=== PATIENT | male | born 1965 | race Caucasian/White ===

== ENCOUNTER 2020-01-15 07:30 | Emergency (ER) | payer OTHER, SELFPAY ==
[2020-01-15] MEDS ORDERED: Ketorolac 60 MG/2 ML SDV IVPUSH ONE (07:51)
[2020-01-15] MEDS ORDERED: HYDROmorphone 2 MG/ML SDV IVPUSH ONE (08:12)
--- NOTE | 2020-01-15 08:14 | EDM.PDOC ---
ED HPI GENERAL MEDICAL PROBLEM - General Chief Complaint: Flank Pain Stated Complaint: left flank and back pain Time Seen by Provider: 01/15/20 07:50 Source of Information: Reports: Patient History Limitations: Reports: No Limitations - History of Present Illness INITIAL COMMENTS - FREE TEXT/NARRATIVE: patient had bilateral flank pain starting on Thursday, now has left flank pain. Denies any fever, cough, N/V/D, urinary symptoms, blood in urine, injury. Pain increased while lying and moving, pain is steady, achy, and sharp at times. He does not want a CT scan due to not having insurance, we discussed the risks amnd benefits, he has opted to start with a urine test. Location: Reports: Back Quality: Reports: Ache, Sharp Severity: Moderate Improves with: Reports: None Worsens with: Reports: Movement Associated Symptoms: Reports: No Other Symptoms Treatments [employer]: Reports: Acetaminophen - Related Data Allergies Allergy/AdvReac Type Severity Reaction Status Date / Time No Known Allergies Allergy Verified 06/06/16 18:07 Home Meds: Home Meds Acetaminophen/Caffeine [Excedrin Tension Headache] 1 tab PO Q6HR PRN 06/06/16 [History] Past Medical History - Past Health History Medical/Surgical History: Denies Medical/Surgical History Social & Family History - Tobacco Use Smoking Status *Q: Never Smoker Second Hand Smoke Exposure: No - Caffeine Use Caffeine Use: Reports: Soda - Recreational Drug Use Recreational Drug Use: No ED ROS GENERAL - Review of Systems Review Of Systems: See Below Constitutional: Reports: No Symptoms HEENT: Reports: No Symptoms Respiratory: Reports: No Symptoms Cardiovascular: Reports: No Symptoms Endocrine: Reports: No Symptoms GI/Abdominal: Reports: No Symptoms : Reports: No Symptoms Musculoskeletal: Reports: Back Pain Skin: Reports: No Symptoms Neurological: Reports: No Symptoms Psychiatric: Reports: No Symptoms Hematologic/Lymphatic: Reports: No Symptoms ED EXAM,LOWER BACK PAIN/INJURY - Physical Exam Exam: See Below Exam Limited By: No Limitations General Appearance: Alert, WD/WN Ears: Normal External Exam Head: Atraumatic Neck: Normal Inspection, Full Range of Motion Respiratory/Chest: No Respiratory Distress, Lungs Clear, Normal Breath Sounds Cardiovascular: Normal Peripheral Pulses, No Edema, No Murmur GI/Abdominal: Normal Bowel Sounds, Non-Tender Back Exam: Normal Inspection, CVA Tenderness (L). No: CVA Tenderness (R) Extremities: Normal Inspection, Non-Tender, Normal Capillary Refill Neurological: Alert, Normal Mood/Affect, Normal Gait, No Motor/Sensory Deficits, Oriented x 3 Psychiatric: Normal Affect, Normal Mood Skin Exam: Warm, Dry, Intact Course - Vital Signs Last Recorded V/S: Last Vital Signs Temp 98 F 01/15/20 07:40 Pulse 90 01/15/20 07:40 Resp 20 01/15/20 07:40 BP 176/108 H 01/15/20 07:40 Pulse Ox 98 01/15/20 07:40 - Orders/Labs/Meds Labs: Laboratory Tests 01/15/20 Range/Units 09:00 Urine Color Yellow Urine Appearance Clear (CLEAR) Urine pH 7.0 (5.0-8.0) Ur Specific [place] 1.015 (1.003-1.030) Urine Protein Negative (NEGATIVE) mg/dL Urine Glucose (UA) Negative (NEGATIVE) mg/dL Urine Ketones Negative (NEGATIVE) mg/dL Urine Occult Blood Negative (NEGATIVE) Urine Nitrite Negative (NEGATIVE) Urine Bilirubin Negative (NEGATIVE) Urine Urobilinogen 0.2 (0.2-1.0) E.U./dL Ur Leukocyte Esterase Negative (NEGATIVE) Meds: Medications Discontinued Medications Generic Name Dose Route Start Last Admin Trade Name Freq PRN Reason Stop Dose Admin Hydromorphone HCl 1 mg 01/15/20 08:12 01/15/20 08:19 Dilaudid IVPUSH 01/15/20 08:13 1 mg ONETIME ONE Administration Ketorolac Tromethamine 15 mg 01/15/20 07:51 01/15/20 07:53 Toradol IVPUSH 01/15/20 07:52 15 mg ONETIME ONE Administration Departure - Departure Time of Disposition: 09:45 Disposition: Home, Self-Care 01 Condition: Good Clinical Impression: Acute flank pain - Discharge Information *PRESCRIPTION DRUG MONITORING PROGRAM REVIEWED*: Not Applicable *COPY OF PRESCRIPTION DRUG MONITORING REPORT IN PATIENT MARIA ALEJANDRA: Not Applicable Instructions: Flank Pain, Adult Forms: ED Department Discharge Additional Instructions: PLEASE return to ED for any increased or new concerning symptoms. Increase fluids. Think about having a CT scan, as we still do not know what is causing your pain. You may take ibuprofen and/or tylenol for the pain. Sepsis Event Note (ED) - Evaluation Sepsis Screening Result: No Definite Risk - Focused Exam Vital Signs: Vital Signs Temp Pulse Resp BP Pulse Ox 01/15/20 07:40 98 F 90 20 176/108 H 98 - Assessment/Plan Assessment:: Pain decreased after IV dilaudid administered. He is refusing any further work up including. We discussed the risks of leaving the ER without further testing. He continues to refuse. He will return to ED if symptoms return, change, or increase. He will sign out AMA. He verbalized understanding of the risks of leaving.
[2020-01-15] MEDS ORDERED: HYDROmorphone 4 MG/ML Syringe IVPUSH SCH (09:45)
== END 2020-01-15 10:03 | disposition home or self-care (01) ==
LOC: LB.ED 07:30
DX: R10.9 Unspecified abdominal pain (principal)
CPT/HCPCS: 81003; 96374; 96375; 99284; J1170; J1885

== ENCOUNTER 2024-10-18 19:55 | Emergency (ER) | payer MEDICAID ==
[2024-10-18] MEDS: Sodium Chloride 0.9% 1,000 ML IV ONE (20:30)
[2024-10-18 20:32] LABS: BASOPHILS ABSOLUTE AUTO 0.04 K/uL (0.02-0.10); BASOPHILS PERCENT AUTO 0.5 % (0.0-0.5); EOSINOPHILS ABSOLUTE AUTO 0.05 K/uL (0.04-0.40); EOSINOPHILS PERCENT AUTO 0.7 % (1.0-5.0); HEMATOCRIT 39.8 % (40.0-54.0); HEMOGLOBIN 13.6 g/dL (13.0-18.0); LYMPHOCYTES PERCENT AUTO 22.5 % (20.0-40.0); MEAN CORPUSCULAR HEMOGLOBIN 29.1 pg (27.0-32.0); MEAN CORPUSCULAR HGB CONC 34.2 g/dL (31.0-35.0); MEAN CORPUSCULAR VOLUME 85 fL (76-96); MEAN PLATELET VOLUME 8.7 fL (6.0-10.0); MONOCYTES ABSOLUTE AUTO 0.74 K/uL (0.20-0.80); MONOCYTES PERCENT AUTO 9.8 % (3.0-10.0); NEUTROPHILS ABSOLUTE AUTO 5.01 K/uL (2.00-7.50); NEUTROPHILS PERCENT AUTO 66.5 % (45.0-70.0); PLATELET COUNT,PLT 251 K/uL (150-400); RED BLOOD CELL COUNT 4.67 M/uL (4.50-6.50); RED CELL DISTRIBUTION WIDTH 13.1 % (11.0-16.0); WHITE BLOOD CELL COUNT,WBC 7.5 K/uL (4.0-11.0)
[2024-10-18] MEDS: LORazepam 2 MG/ML SDV IVPUSH ONE ×2 (20:47→21:26)
[2024-10-18 20:53] LABS: PTT,PARTIAL THROMBOPLSTIN TIME 21.8 SECONDS (24.4-33.2)
[2024-10-18 20:58] LABS: A/G RATIO 1.2 (0.8-2.0); ALBUMIN 3.9 g/dL (3.4-5.0); BILIRUBIN TOTAL 0.7 mg/dL (0.0-1.0); BUN/CREATININE RATIO 13.7 (6-25); CALCIUM 9.1 mg/dL (8.5-10.1); CARBON DIOXIDE,CO2 25.8 mmol/L (21.0-32.0); CREATININE 0.73 mg/dL (0.70-1.30); EST CRCL DRUG DOSING (CG) 98.86 mL/min; MAGNESIUM 2.1 mg/dL (1.8-2.4); POTASSIUM,K 3.8 mmol/L (3.5-5.1); PROTEIN TOTAL,TP 7.2 g/dL (6.4-8.2); TROPONIN I HIGH SENSITIVITY 8.1 pg/ml (<=60.4)
[2024-10-18 21:16] LABS: PROTHROMBIN TIME 10.1 sec (9.0-11.5)
[2024-10-18] MEDS: diphenhydrAMINE 50 MG/ML SDV IVPUSH ONE (21:25)
[2024-10-18] MEDS ORDERED: LORazepam 1 MG Tab ONE (22:00)
[2024-10-19] MEDS ORDERED: Sodium Chloride 0.9% 10 ML Syringe FLUSH PRN (00:23)
[2024-10-19] MEDS: LORazepam 1 MG Tab ONE (00:33)
[2024-10-19 07:13] LABS: AMPHETAMINES SCREEN, URINE NEGATIVE (NEGATIVE); BARBITURATE SCREEN,URINE NEGATIVE (NEGATIVE); BENZODIAZEPINES SCREEN,URINE NEGATIVE (NEGATIVE); METHADONE SCREEN, URINE NEGATIVE (NEGATIVE); METHAMPHETAMINES SCREEN, URINE NEGATIVE (NEGATIVE); OXYCODONE SCREEN,URINE POSITIVE (NEGATIVE); THC SCREEN,URINE 50 NG/ML NEGATIVE (NEGATIVE)
[2024-10-19 07:19] LABS: APPEARANCE,URINE CLEAR (CLEAR); BILIRUBIN,URINE NEGATIVE (NEGATIVE); COLOR,URINE OTHER; GLUCOSE,URINE NEGATIVE (NEGATIVE); KETONES,URINE NEGATIVE (NEGATIVE); LEUKOCYTE ESTERASE,URINE NEGATIVE (NEGATIVE); NITRITE,URINE NEGATIVE (NEGATIVE); OCCULT BLOOD,URINE TRACE-LYSED (NEGATIVE); PROTEIN,URINE NEGATIVE (NEGATIVE); UROBILINOGEN,URINE 0.2 E.U./dL (0.2-1.0)
[2024-10-19 07:20] LABS: RBC,URINE 0-5 /HPF; WBC,URINE 0-5 /HPF
== END 2024-10-18 22:55 | disposition home or self-care (01) ==
LOC: LB.ED 19:55
DX: F41.9 Anxiety disorder, unspecified (principal); Z79.899 Other long term (current) drug therapy
CPT/HCPCS: 36415; 71045; 80053; 80307; 81001; 83735; 84484; 85025; 85610; 85730; 93005; 93010; 96374; 96375; 96376; 99284; 99285-25; A9270-GY; J1200; J2060; J7030